=== PATIENT | male | born 1975 | race Caucasian/White ===

== ENCOUNTER 2017-06-29 06:07 | Emergency (ER) | payer MEDICARE ==
[2017-06-29] MEDS ORDERED: Gabapentin 100 MG CAP ONE (07:13)
== END 2017-06-29 07:21 | disposition home or self-care (01) ==
LOC: MADERS 06:07
DX: E11.40 Type 2 diabetes mellitus with diabetic neuropathy, unspecified (principal); E11.65 Type 2 diabetes mellitus with hyperglycemia; I10 Essential (primary) hypertension; F41.9 Anxiety disorder, unspecified; F32.9 Major depressive disorder, single episode, unspecified; Z79.4 Long term (current) use of insulin
CPT/HCPCS: 36416; 99284